=== PATIENT | female | born 1995 | race African-American/Black ===

== ENCOUNTER 2018-03-14 20:31 | Emergency (ER) | payer SELFPAY ==
[~2018-03-14] VITALS: Ht 160 cm; Wt 75.0 kg
[2018-03-15 01:16] VITALS: BP 125/72
[2018-03-15] MEDS ORDERED: METHYLPREDNISOLONE SOD SUCC 125 MG/2 ML VIAL IV ONE (02:00)
[2018-03-15] MEDS ORDERED: DIPHENHYDRAMINE 50MG/ML VIAL IV ONE (02:00)
[2018-03-15] MEDS ORDERED: FAMOTIDINE 20MG/2ML VIAL IV ONE (02:00)
== END 2018-03-15 06:10 | disposition home or self-care (01) ==
LOC: ER 21:37
DX: L50.0 Allergic urticaria (principal); J45.909 Unspecified asthma, uncomplicated
CPT/HCPCS: 96374; 96375; 99284; J1200; J2930; J3490; Z7610

== ENCOUNTER 2019-09-11 10:24 | Emergency (ER) | payer MEDICAID, OTHER ==
[~2019-09-11] VITALS: Ht 160 cm; Wt 75.0 kg
[2019-09-11] MEDS ORDERED: PREDNISONE 20MG TABLET PO ONE (12:00)
[2019-09-11] MEDS ORDERED: ALBUTEROL (0.083%) 2.5MG/3ML NEB HHN ONE (12:00)
[2019-09-11 12:34] VITALS: BP 125/78
== END 2019-09-11 12:45 | disposition home or self-care (01) ==
LOC: ER 10:24
DX: J45.909 Unspecified asthma, uncomplicated (principal); J06.9 Acute upper respiratory infection, unspecified
CPT/HCPCS: 71045; 94640; 99283; J7512; J7611; Z7610

== ENCOUNTER 2022-03-11 16:09 | Emergency (ER) | payer MEDICAID, OTHER ==
[~2022-03-11] VITALS: Ht 160 cm; Wt 70.0 kg
[2022-03-11 16:14] VITALS: BP 135/78
[2022-03-11] MEDS ORDERED: IBUPROFEN 600MG TABLET PO ONE (16:45)
[2022-03-11] MEDS ORDERED: IBUP-2029 MT (17:43)
== END 2022-03-11 18:45 | disposition home or self-care (01) ==
LOC: ER 16:09
DX: S62.637A Displaced fracture of distal phalanx of left little finger, initial encounter for closed fracture (principal); J45.909 Unspecified asthma, uncomplicated; W22.8XXA Striking against or struck by other objects, initial encounter; Y93.89 Activity, other specified; Y92.9 Unspecified place or not applicable
CPT/HCPCS: 29130; 73140; 99283